=== PATIENT | female | born 1955 | race Caucasian/White ===

== ENCOUNTER 2017-09-15 13:14 | Emergency (ER) | payer MEDICARE ==
[2017-09-15 14:07] LABS: #Basophils 0.1 thou/uL (0.0-0.2); #Eosinphils 0.3 thou/uL (0.0-0.7); #Lymphocytes 2.7 thou/uL (1.20-3.40); #Monocytes 0.8 thou/uL (0.11-0.59); %Basophils 0.7 % (0.0-1.0); %Eosinophils 2.2 % (0.0-10.0); %Monocytes 6.4 % (0.0-10.0); %Neutrophils 67.7 % (42.0-75.0); Hemoglobin 13.5 g/dL (12.0-16.0); Mean Corpuscular HGB CONC 34.4 g/dL (32.0-36.0); Mean Corpuscular Volume 90.1 fl (81.0-99.0); Mean Platelet Volume 6.8 fL (7.4-10.4); Platelet Count 251 thou/uL (130-400); RBC Distribution Width 12.1 % (11.5-14.5); Red Blood Cell (RBC) Count 4.35 mill/uL (4.20-5.40); White Blood Cell (WBC) Count 11.8 thou/uL (4.8-10.8)
[2017-09-15 14:15] LABS: PTT 31.2 SEC (22.9-36.1); Prothrombin Time 13.7 SEC (12.0-14.7)
[2017-09-15 14:37] LABS: ALT (SGPT) 16 U/L (8-55); AST (SGOT) 17 U/L (5-34); Albumin 3.9 g/dL (3.4-4.8); Alkaline Phosphatase 113 U/L (40-150); Anion Gap 11 mmol/L (10-20); BUN (Urea Nitrogen) 11 mg/dL (9.8-20.1); Bilirubin, Total 0.3 mg/dL (0.2-1.2); Calc. Creatinine Clearance 0 mL/min (70-130); Calcium 8.9 mg/dL (7.8-10.44); Carbon Dioxide 29 mmol/L (23-31); Chloride 104 mmol/L (98-107); Estimated GFR-MDRD 61; Globulin 2.9 g/dL (2.4-3.5); Glucose 85 mg/dL (80-115); Potassium 3.6 mmol/L (3.5-5.1); Protein, Total 6.8 g/dL (6.0-8.3); Sodium 140 mmol/L (136-145)
--- NOTE | 2017-09-15 15:22 | RAD ---
RIGHT HAND TWO VIEWS: History: Bruising. Comparison: None. FINDINGS: No acute fracture or malalignment. No significant periostitis. Soft tissues are unremarkable. IMPRESSION: No acute abnormality. POS: [facility]
== END 2017-09-15 15:43 | disposition home or self-care (01) ==
LOC: ERS 13:14
DX: R23.3 Spontaneous ecchymoses (principal); I11.0 Hypertensive heart disease with heart failure; I50.9 Heart failure, unspecified; I25.2 Old myocardial infarction; F32.9 Major depressive disorder, single episode, unspecified; Z87.891 Personal history of nicotine dependence; Z86.73 Personal history of transient ischemic attack (TIA), and cerebral infarction without residual deficits
CPT/HCPCS: 36415; 80053; 85025; 85610; 85730

== ENCOUNTER 2018-04-16 15:05 | Emergency (ER) | payer MEDICARE ==
[2018-04-16 17:00] LABS: #Basophils 0.1 thou/uL (0.0-0.2); #Eosinphils 0.2 thou/uL (0.0-0.7); #Lymphocytes 2.7 thou/uL (1.20-3.40); #Monocytes 0.6 thou/uL (0.11-0.59); #Neutrophils 5.5 thou/uL (1.40-6.50); %Eosinophils 2.5 % (0.0-10.0); %Lymphocytes 29.7 % (21.0-51.0); %Monocytes 6.8 % (0.0-10.0); Hemoglobin 13.9 g/dL (12.0-16.0); Mean Corpuscular Hemoglobin 30.5 pg (27.0-31.0); Mean Corpuscular Volume 92.4 fL (78.0-98.0); Mean Platelet Volume 7.6 fL (7.4-10.4); Platelet Count 272 thou/uL (130-400); RBC Distribution Width 12.7 % (11.5-14.5); Red Blood Cell (RBC) Count 4.58 mill/uL (4.20-5.40); White Blood Cell (WBC) Count 9.1 thou/uL (4.8-10.8)
[2018-04-16 17:21] LABS: ALT (SGPT) 15 U/L (8-55); AST (SGOT) 18 U/L (5-34); Albumin 3.9 g/dL (3.4-4.8); Alkaline Phosphatase 125 U/L (40-150); Anion Gap 11 mmol/L (10-20); BUN (Urea Nitrogen) 11 mg/dL (9.8-20.1); Bilirubin, Total 0.5 mg/dL (0.2-1.2); Calc. Creatinine Clearance 0 mL/min (70-130); Calcium 9.4 mg/dL (7.8-10.44); Carbon Dioxide 27 mmol/L (23-31); Chloride 105 mmol/L (98-107); Estimated GFR-MDRD 53; Globulin 3.6 g/dL (2.4-3.5); Glucose 87 mg/dL (80-115); Protein, Total 7.5 g/dL (6.0-8.3); Sodium 139 mmol/L (136-145)
[2018-04-16] MEDS ORDERED: Dexamethasone 10 MG/ML VIAL ONE (17:31)
[2018-04-16] MEDS ORDERED: Fentanyl 100 MCG/2 ML VIAL ONE (17:31)
[2018-04-16 19:12] LABS: Bilirubin Negative (Negative); Blood, Urine Negative (Negative); Clarity CLEAR (Clear); Glucose, Urine (Dipstick) Negative (Negative); Leukocyte Trace (Negative); Protein, Urine (Dipstick) Negative (Neg-Trace); Specific Gravity, Urine 1.011 (1.002-1.036)
[2018-04-16 19:15] LABS: Bacteria/HPF None Seen HPF (None Seen); Hyaline Casts/LPF 0-3 HYALINE CAST LPF (0-3 Hyaline); Pathc Cast-AUWi Flag 0.72 (0-2.49); RBC/HPF 0-3 HPF (0-3); Squamous Epithelial 0-3 HPF (0-3); WBC/HPF 0-3 HPF (0-3)
--- NOTE | 2018-04-16 19:20 | CT ---
CT OF LUMBAR SPINE PERFORMED WITHOUT CONTRAST ENHANCEMENT: 04/16/18 HISTORY: Low back pain starting four weeks ago with pain radiating to the lower extremities. The vertebral bodies are normal in height. There is a vertebral body hemangioma of T12. There is rojas ed disc narrowing at L5-S1. The bones are diffusely demineralized. There are degenerative facet burk es present. No significant periaortic adenopathy. The visualized portions of the kidneys appear unremarkable. Sli ghtly lobulated contour to both kidneys. T12-L1: Unremarkable. L1-2: Unremarkable. L2-3: Mild degree of canal stenosis with degenerative facet and ligamentous hypertrophic change. L3-4: There is a mild to moderate degree of canal stenosis at this level with disc bulge and facet hy pertrophic changes. L4-5: There is a mild to moderate degree of canal narrowing at this level, again with disc bulging as well as degenerative facet and ligamentous hypertrophic changes. L5-S1: No significant canal stenosis. There is some mild left sided foraminal narrowing. IMPRESSION: Areas of mild to moderate canal stenosis. No signs of any acute injury. POS: [facility]
[2018-04-16 19:26] LABS: Nitrite Positive (Negative)
== END 2018-04-16 20:24 | disposition home or self-care (01) ==
LOC: ERS 15:05
DX: M54.5 Low back pain (principal); I25.2 Old myocardial infarction; I11.0 Hypertensive heart disease with heart failure; I50.9 Heart failure, unspecified; Z86.73 Personal history of transient ischemic attack (TIA), and cerebral infarction without residual deficits; F32.9 Major depressive disorder, single episode, unspecified; Z87.891 Personal history of nicotine dependence
CPT/HCPCS: 36415; 72131; 80053; 81003; 81015; 85025; 96374; 96375; J1100; J3010

== ENCOUNTER 2018-11-01 10:53 | Emergency (ER) | payer MEDICARE ==
[2018-11-01 12:04] LABS: #Basophils 0.1 thou/uL (0.0-0.2); #Eosinphils 0.1 thou/uL (0.0-0.7); #Lymphocytes 2.6 thou/uL (1.20-3.40); #Monocytes 0.7 thou/uL (0.11-0.59); #Neutrophils 6.3 thou/uL (1.40-6.50); %Basophils 0.9 % (0.0-1.0); %Eosinophils 0.6 % (0.0-10.0); %Lymphocytes 26.5 % (21.0-51.0); %Monocytes 7.1 % (0.0-10.0); %Neutrophils 64.9 % (42.0-75.0); Hemoglobin 12.9 g/dL (12.0-16.0); Mean Corpuscular HGB CONC 33.4 g/dL (32.0-36.0); Mean Corpuscular Hemoglobin 29.6 pg (27.0-31.0); Mean Corpuscular Volume 88.5 fL (78.0-98.0); Mean Platelet Volume 7.3 fL (7.4-10.4); Platelet Count 249 thou/uL (130-400); RBC Distribution Width 12.2 % (11.5-14.5); Red Blood Cell (RBC) Count 4.38 mill/uL (4.20-5.40); White Blood Cell (WBC) Count 9.7 thou/uL (4.8-10.8)
[2018-11-01 12:28] LABS: Acetaminophen Less than 6.0 mcg/mL (10.0-30.0); Alcohol Less than 10 mg/dL (Less than 10); Salicylate Less than 8.0 mg/dL (15.0-30.0)
[2018-11-01 12:34] LABS: ALT (SGPT) 16 U/L (8-55); AST (SGOT) 18 U/L (5-34); Albumin 4.1 g/dL (3.4-4.8); Alkaline Phosphatase 123 U/L (40-150); Anion Gap 13 mmol/L (10-20); BUN (Urea Nitrogen) 19 mg/dL (9.8-20.1); Bilirubin, Total 0.5 mg/dL (0.2-1.2); CK (CPK) 77 U/L (29-168); Calc. Creatinine Clearance 0 mL/min (70-130); Calcium 9.4 mg/dL (7.8-10.44); Carbon Dioxide 27 mmol/L (23-31); Chloride 104 mmol/L (98-107); Estimated GFR-MDRD 62; Globulin 2.7 g/dL (2.4-3.5); Glucose 91 mg/dL (80-115); Protein, Total 6.8 g/dL (6.0-8.3); Sodium 140 mmol/L (136-145)
--- NOTE | 2018-11-01 13:08 | CT ---
CT HEAD WITHOUT CONTRAST: Multiple axial tomograms obtained through the head without IV enhancement. INDICATION: Unsteady gait. COMPARISON: 06/11/2016. FINDINGS: [place] artifact from an apparent aneurysm clip in the base of the skull is again noted. Ventricles have normal size and position. There is no evidence of intracranial mass or hemorrhage. No evidence of acute infarct. IMPRESSION: No acute abnormality or interval change noted. POS: [facility]
[2018-11-01] MEDS ORDERED: Meclizine HCl 25 MG TAB ONE (13:34)
== END 2018-11-01 13:36 | disposition home or self-care (01) ==
LOC: ERS 10:53
DX: R42 Dizziness and giddiness (principal); G89.29 Other chronic pain; M54.2 Cervicalgia; M54.9 Dorsalgia, unspecified; I25.2 Old myocardial infarction; I11.0 Hypertensive heart disease with heart failure; I50.9 Heart failure, unspecified; Z86.73 Personal history of transient ischemic attack (TIA), and cerebral infarction without residual deficits; F32.9 Major depressive disorder, single episode, unspecified; Z87.891 Personal history of nicotine dependence; Z79.899 Other long term (current) drug therapy
CPT/HCPCS: 36415; 70450; 80053; 80307; 82550; 84484; 85025; 93005; J8499

== ENCOUNTER 2018-12-06 09:28 | Outpatient (CLI) | payer MEDICARE, OTHER ==
[2018-12-06] MEDS ORDERED: ISOVUE-370 76%-LOCM 1 ML ONE (11:04)
--- NOTE | 2018-12-06 11:44 | CT ---
CT ANGIOGRAM OF THE HEAD: DATE: 12/06/2018. COMPARISON: Noncontrast head CT 11/01/2018. HISTORY: Aneurysm repair in 2011, migraine headaches and vertigo. TECHNIQUE: Axial CT imaging is obtained at 2 mm intervals from vertex through skull base without contrast. Subs equently, axial CT imaging at 2 mm intervals obtained from the vertex through the skull base with IV contrast using CT angiogram protocol. Coronal and sagittal 3D reformatted imaging obtained. FINDINGS: Noncontrast-enhanced head CT demonstrates no intracranial hemorrhage, midline shift, or mass effect. 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 There are subtle areas of decreased attenuation involving the g[place] ventricular and deep white matter suggesting a degree of small-vessel disease. The imaged paranasal sinuses/mastoid air cells are well aerated. There is no displaced calvarial fracture. Postcontrast imaging demonstrates a relatively hypoplastic vertebral artery on the left. Secondary t o severe atherosclerotic calcification, there are 3 areas of significant stenosis involving the dista l left vertebral artery, with focal areas of severe stenosis just proximal to the origin of the basil ar artery just proximal to and distal to a focal area of prominent atherosclerotic calcification. Th e basilar artery is patent with no stenosis involving the imaged portion of the right vertebral arter y. Streak artifact from embolization material limits detailed assessment at the tip of the basilar a rtery. No discrete residual aneurysm is noted in this region. There is a patent posterior communica ting artery on the right and probably on the left. The posterior cerebral arteries appear patent. There is a short segment [id number] dissection of the distal cervical internal carotid artery on the left, best seen on coronal image 48 and axial image 6. The extracranial ICA is patent bilater ally. The A1 segment and M1 segment is patent bilaterally. The ICA bifurcation and MCA bifurcation appear unremarkable as do distal CATA and MCA branches. No sacular aneurysm of the anterior or posterior cir culation seen. IMPRESSION: 1. Status post aneurysm coiling with no discrete saccular aneurysm seen on this exam. 2. 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 3. Multifocal severe stenosis of distal left vertebral artery. CODE T-Call regarding findings made to Dr. Mcclure 2:45pm 12/06/2018 POS: OFF
== END 2018-12-06 09:29 | disposition home or self-care (01) ==
LOC: BICCT 09:28
PROVIDERS: ATTEND Psychiatry & Neurology Neurology
DX: G43.019 Migraine without aura, intractable, without status migrainosus (principal); I65.02 Occlusion and stenosis of left vertebral artery; I77.71 Dissection of carotid artery; Z98.890 Other specified postprocedural states
CPT/HCPCS: 70496; 82565; Q9966

== ENCOUNTER 2020-09-13 19:48 | Inpatient (IN) | payer MEDICARE, OTHER ==
[~2020-09-13 19:48] MED LIST: Iopamidol-370 76% 500 ML 1 ML ONE
[2020-09-13] MEDS ORDERED: Ketamine 50 MG/ML (10ML VIAL) ONE (19:54)
[2020-09-13] MEDS ORDERED: Rocuronium Bromide 10 MG/ML (10ML VIAL) ONE (19:54)
[2020-09-13 20:39] LABS: INR-International Normal Ratio 1.1; PTT 32.8 sec (22.9-36.1)
[2020-09-13 20:41] LABS: Analyzer IN Cardio ER; Base Excess (BEa) -3.1 mEq/L (-2.0 to +3.0); CO2 Tension 34.7 mmHg (35.0-45.0); Calcium, Ionized (arterial) 1.21 mmol/L (1.12-1.30); Carboxyhemoglobin (COHb) 0.6 gm% (0.0-3.0); Hemoglobin (Hb) 12.4 g/dL (12.0-16.0); O2 Tension (PaO2), arterial 154.7 mmHg (> 80.0); Potassium - ABG Lab 3.38 mmol/L (3.70-5.30)
[2020-09-13 20:46] LABS: Hemoglobin 12.5 g/dL (12.0-16.0); Mean Corpuscular HGB CONC 34.1 g/dL (32.0-36.0); Mean Corpuscular Hemoglobin 33.7 pg (27.0-31.0); Mean Corpuscular Volume 98.9 fL (78.0-98.0); RBC Distribution Width 11.3 % (11.5-14.5)
[2020-09-13 20:52] LABS: Acetaminophen Less than 6.0 mcg/mL (10.0-30.0); Alcohol Less than 10 mg/dL (Less than 10); CK (CPK) 132 U/L (29-168); Salicylate Less than 8.0 mg/dL (15.0-30.0)
[2020-09-13 20:52] LABS: ALT (SGPT) 17 U/L (8-55); AST (SGOT) 17 U/L (5-34); Albumin 3.1 g/dL (3.4-4.8); Alkaline Phosphatase 85 U/L (40-110); Anion Gap 13 mmol/L (10-20); BUN (Urea Nitrogen) 16 mg/dL (9.8-20.1); Bilirubin, Total 0.5 mg/dL (0.2-1.2); Calc. Creatinine Clearance 0 mL/min (70-130); Calcium 8.3 mg/dL (7.8-10.44); Carbon Dioxide 20 mmol/L (23-31); Chloride 114 mmol/L (98-107); Globulin 2.4 g/dL (2.4-3.5); Glucose 138 mg/dL (80-115); Potassium 3.5 mmol/L (3.5-5.1); Protein, Total 5.5 g/dL (5.8-8.1); Sodium 143 mmol/L (136-145)
[2020-09-13 20:58] LABS: Band 8 % (5-11); Eosinophils 2 % (0-10); Lymphocytes 11 % (21-51); MDiff Complete? YES; Mean Platelet Volume 6.9 fL (7.4-10.4); Monocytes 8 % (0-10); Neutrophil 71 % (42-75); Platelet Count 238 thou/uL (130-400); White Blood Cell (WBC) Count 21.1 thou/uL (4.8-10.8)
[2020-09-13 21:40] LABS: Bilirubin Negative (Negative); Blood, Urine Negative (Negative); Clarity Clear (Clear); Glucose, Urine (Dipstick) Normal (Negative); Ketone, Urine Negative (Negative); Leukocyte Negative Leu/uL (Negative); Nitrite Negative (Negative); Protein, Urine (Dipstick) Negative (Neg-Trace); Urobilinogen Normal mg/dL (Less than 2); pH, Urine 6.5 (5.0-9.0)
[2020-09-13 21:51] LABS: ALV-art Gradient 158.425 mmHg (0-20); Puncture Site LRA
[2020-09-13 21:52] LABS: Amphetamine Not Detected (NotDetected); Barbiturates Screen Not Detected (NotDetected); Benzodiazepine Screen Not Detected (NotDetected); Cocaine Metabolite Screen Not Detected (NotDetected); Medtox Control Line Valid? VALID (VALID); Medtox Reader # READER 4; Methadone Not Detected (NotDetected); Methamphetamine Not Detected (NotDetected); Opiate Screen Not Detected (NotDetected); Oxycodone Screen Not Detected (NotDetected); Phencyclidine (PCP) Not Detected (NotDetected); THC/Cannabinoid Screen Not Detected (NotDetected); Tricyclic Screen Not Detected (NotDetected)
[2020-09-13] MEDS ORDERED: Propofol 1,000 MG/100 ML VIAL IV ONE (22:04)
[2020-09-13 22:07] LABS: SARS-CoV-2 NAA Rapid Test Not Detected (NotDetected)
[2020-09-13] MEDS ORDERED: diphenhydrAMINE 50 MG/ML VIAL ONE (22:28)
[2020-09-13] MEDS ORDERED: Ventilator Sedation Protocol 1 EACH FS SCH (22:30)
[2020-09-13] MEDS ORDERED: Lorazepam 2 MG/ML VIAL SLOW IVP PRN (22:45)
[2020-09-13] MEDS ORDERED: Fentanyl BOLUS 250 ML IVPB PRN (22:45)
[2020-09-13] MEDS ORDERED: Morphine 2 MG/ML VIAL SLOW IVP PRN (22:45)
[2020-09-13] MEDS ORDERED: Propofol BOLUS 1,000 MG/100 ML VIAL IV PRN (22:45)
[2020-09-13] MEDS ORDERED: DISCONTINUE PREVIOUS NARCOTIC PAIN MEDICATIONS AND BENZODIAZEPINES FS SCH (22:45)
[2020-09-13] MEDS ORDERED: Fentanyl CADD 100 ML IV SCH (22:45)
[2020-09-14] MEDS: Lactated Ringer's 1,000 ML IV SCH ×3 (00:15→17:10)
[2020-09-14 04:22] LABS: Band 4 % (5-11); Hemoglobin 12.4 g/dL (12.0-16.0); Lymphocytes 16 % (21-51); MDiff Complete? YES; Mean Corpuscular HGB CONC 33.9 g/dL (32.0-36.0); Mean Corpuscular Hemoglobin 33.2 pg (27.0-31.0); Mean Corpuscular Volume 97.8 fL (78.0-98.0); Mean Platelet Volume 6.9 fL (7.4-10.4); Monocytes 4 % (0-10); Neutrophil 76 % (42-75); Platelet Count 217 thou/uL (130-400); RBC Distribution Width 11.2 % (11.5-14.5); Red Blood Cell (RBC) Count 3.73 mill/uL (4.20-5.40); White Blood Cell (WBC) Count 14.4 thou/uL (4.8-10.8)
[2020-09-14 04:29] LABS: ALT (SGPT) 17 U/L (8-55); AST (SGOT) 17 U/L (5-34); Albumin 2.9 g/dL (3.4-4.8); Alkaline Phosphatase 85 U/L (40-110); Anion Gap 13 mmol/L (10-20); BUN (Urea Nitrogen) 14 mg/dL (9.8-20.1); Bilirubin, Total 0.6 mg/dL (0.2-1.2); Calc. Creatinine Clearance 117 mL/min (70-130); Calcium 8.6 mg/dL (7.8-10.44); Carbon Dioxide 20 mmol/L (23-31); Chloride 114 mmol/L (98-107); Globulin 2.7 g/dL (2.4-3.5); Glucose 101 mg/dL (80-115); Potassium 3.4 mmol/L (3.5-5.1); Protein, Total 5.6 g/dL (5.8-8.1); Sodium 144 mmol/L (136-145)
[2020-09-14] MEDS ORDERED: FLU VACC QS2020-21(6MOS UP)/PF 60 MCG/0.5 ML SYRINGE IM ONE (09:00)
[2020-09-14] MEDS: Pantoprazole 40 MG VIAL IVP SCH (09:36)
[2020-09-14] MEDS ORDERED: Potassium Chloride 40 MEQ in Sodium Chloride 0.9% 250 ML 250 ML IVPB SCH (10:00)
[2020-09-14] MEDS ORDERED: Potassium Bicarbonate/Cit Ac 20 MEQ TAB PER TUBE SCH (11:00)
[2020-09-14] MEDS ORDERED: hydrALAZINE 20 MG/ML VIAL SLOW IVP PRN (12:14)
[2020-09-14] MEDS ORDERED: Enoxaparin Sodium 40 MG/0.4 ML SYRINGE SC SCH (15:00)
[2020-09-14] MEDS: Acetaminophen 325 MG TAB PO PRN (20:53)
[2020-09-14] MEDS: Propofol 1,000 MG/100 ML VIAL IV PRN (21:19)
[2020-09-14] MEDS ORDERED: Fentanyl CADD 100 ML ONE (22:37)
[2020-09-15] MEDS: Lactated Ringer's 1,000 ML IV SCH ×3 (00:30→17:02)
[2020-09-15] MEDS: Propofol 1,000 MG/100 ML VIAL IV PRN ×3 (01:35→18:39)
[2020-09-15 04:21] LABS: ALT (SGPT) 14 U/L (8-55); AST (SGOT) 13 U/L (5-34); Albumin 2.9 g/dL (3.4-4.8); Alkaline Phosphatase 80 U/L (40-110); Anion Gap 14 mmol/L (10-20); BUN (Urea Nitrogen) 12 mg/dL (9.8-20.1); Bilirubin, Total 0.5 mg/dL (0.2-1.2); Calc. Creatinine Clearance 131 mL/min (70-130); Calcium 8.4 mg/dL (7.8-10.44); Carbon Dioxide 21 mmol/L (23-31); Chloride 107 mmol/L (98-107); Globulin 2.7 g/dL (2.4-3.5); Glucose 109 mg/dL (80-115); Protein, Total 5.6 g/dL (5.8-8.1); Sodium 139 mmol/L (136-145)
[2020-09-15 04:53] LABS: Potassium 2.7 mmol/L (3.5-5.1)
[2020-09-15 04:58] LABS: Band 6 % (5-11); Hemoglobin 12.2 g/dL (12.0-16.0); Lymphocytes 15 % (21-51); MDiff Complete? YES; Mean Corpuscular HGB CONC 34.1 g/dL (32.0-36.0); Mean Corpuscular Hemoglobin 33.3 pg (27.0-31.0); Mean Corpuscular Volume 97.6 fL (78.0-98.0); Mean Platelet Volume 7.3 fL (7.4-10.4); Monocytes 1 % (0-10); Neutrophil 78 % (42-75); Platelet Count 244 thou/uL (130-400); RBC Distribution Width 11.1 % (11.5-14.5); Red Blood Cell (RBC) Count 3.67 mill/uL (4.20-5.40); White Blood Cell (WBC) Count 20.6 thou/uL (4.8-10.8)
[2020-09-15] MEDS ORDERED: Electrolyte Replacement Protocol FS PRN (05:30)
[2020-09-15] MEDS: Potassium Bicarbonate/Cit Ac 20 MEQ TAB PER TUBE SCH ×2 (05:35→09:22)
[2020-09-15] MEDS: Aspirin 81 mg Enteric Coated Tablet PO SCH (08:27)
[2020-09-15] MEDS: Clopidogrel Bisulfate 75 MG TAB PO SCH (08:27)
[2020-09-15] MEDS: Enoxaparin Sodium 40 MG/0.4 ML SYRINGE SC SCH (08:27)
[2020-09-15] MEDS: Pantoprazole 40 MG VIAL IVP SCH (08:27)
[2020-09-15] MEDS ORDERED: Enoxaparin Sodium 40 MG/0.4 ML SYRINGE SC SCH (09:00)
[2020-09-15] MEDS: cefTRIAXone\\ROCEPHIN 1 GM in Sodium Chloride 0.9% 100 ML IVPB SCH (11:47)
[2020-09-15] MEDS: Vancomycin 1 GM in Premix Bag 1 BAG IVPB SCH (12:46)
[2020-09-15] MEDS ORDERED: cloNIDine 0.2 MG TAB PO SCH (13:23)
[2020-09-15 14:43] LABS: Anion Gap 18 mmol/L (10-20); BUN (Urea Nitrogen) 13 mg/dL (9.8-20.1); Calc. Creatinine Clearance 124 mL/min (70-130); Calcium 8.7 mg/dL (7.8-10.44); Carbon Dioxide 22 mmol/L (23-31); Chloride 103 mmol/L (98-107); Glucose 108 mg/dL (80-115); Potassium 3.2 mmol/L (3.5-5.1); Sodium 140 mmol/L (136-145)
[2020-09-15] MEDS ORDERED: Potassium Chloride 20 MEQ TAB PO SCH (15:45)
[2020-09-15] MEDS ORDERED: Magnesium Sulfate 4 GM in Sodium Chloride 0.9% 250 ML 250 ML IVPB SCH (16:00)
[2020-09-15] MEDS: Acetaminophen 325 MG TAB PO PRN (16:46)
[2020-09-15] MEDS: clonazePAM 0.5 MG TAB PO SCH (20:00)
[2020-09-15] MEDS: cloNIDine 0.2 MG TAB PO SCH (20:00)
[2020-09-16] MEDS: Vancomycin 1 GM in Premix Bag 1 BAG IVPB SCH ×2 (00:02→12:02)
[2020-09-16] MEDS: Acetaminophen 325 MG TAB PO PRN ×2 (00:03→16:12)
[2020-09-16] MEDS: Lactated Ringer's 1,000 ML IV SCH ×2 (03:00→09:33)
[2020-09-16] MEDS: Propofol 1,000 MG/100 ML VIAL IV PRN (03:59)
[2020-09-16 04:13] LABS: ALT (SGPT) 16 U/L (8-55); AST (SGOT) 15 U/L (5-34); Albumin 2.7 g/dL (3.4-4.8); Alkaline Phosphatase 82 U/L (40-110); Anion Gap 11 mmol/L (10-20); BUN (Urea Nitrogen) 13 mg/dL (9.8-20.1); Bilirubin, Total 0.4 mg/dL (0.2-1.2); Calc. Creatinine Clearance 130 mL/min (70-130); Calcium 7.7 mg/dL (7.8-10.44); Carbon Dioxide 24 mmol/L (23-31); Chloride 106 mmol/L (98-107); Globulin 3.1 g/dL (2.4-3.5); Glucose 104 mg/dL (80-115); Potassium 3.3 mmol/L (3.5-5.1); Protein, Total 5.8 g/dL (5.8-8.1); Sodium 138 mmol/L (136-145)
[2020-09-16 04:45] LABS: Band 6 % (5-11); Eosinophils 3 % (0-10); Hemoglobin 12.1 g/dL (12.0-16.0); Lymphocytes 15 % (21-51); MDiff Complete? YES; Mean Corpuscular HGB CONC 34.3 g/dL (32.0-36.0); Mean Corpuscular Hemoglobin 33.6 pg (27.0-31.0); Mean Corpuscular Volume 97.8 fL (78.0-98.0); Mean Platelet Volume 7.4 fL (7.4-10.4); Monocytes 9 % (0-10); Neutrophil 67 % (42-75); Platelet Count 246 thou/uL (130-400); RBC Distribution Width 11.3 % (11.5-14.5); White Blood Cell (WBC) Count 20.8 thou/uL (4.8-10.8)
[2020-09-16] MEDS ORDERED: Potassium Chloride 20 MEQ TAB PO SCH (06:15)
[2020-09-16] MEDS: cloNIDine 0.2 MG TAB PO SCH ×2 (08:23→20:16)
[2020-09-16] MEDS: Aspirin 81 mg Enteric Coated Tablet PO SCH (08:23)
[2020-09-16] MEDS: Clopidogrel Bisulfate 75 MG TAB PO SCH (08:23)
[2020-09-16] MEDS: clonazePAM 0.5 MG TAB PO SCH ×2 (08:23→20:16)
[2020-09-16] MEDS: Enoxaparin Sodium 40 MG/0.4 ML SYRINGE SC SCH (08:24)
[2020-09-16] MEDS: Pantoprazole 40 MG VIAL IVP SCH (08:24)
[2020-09-16] MEDS: cefTRIAXone\\ROCEPHIN 1 GM in Sodium Chloride 0.9% 100 ML IVPB SCH (11:20)
[2020-09-16] MEDS: Haloperidol Lactate 5 MG/ML VIAL SLOW IVP PRN ×2 (16:09→22:59)
[2020-09-17 04:07] LABS: Band 3 % (5-11); Eosinophils 1 % (0-10); Hemoglobin 11.7 g/dL (12.0-16.0); Lymphocytes 17 % (21-51); MDiff Complete? YES; Mean Corpuscular HGB CONC 31.3 g/dL (32.0-36.0); Mean Corpuscular Hemoglobin 30.7 pg (27.0-31.0); Mean Corpuscular Volume 98.3 fL (78.0-98.0); Mean Platelet Volume 7.5 fL (7.4-10.4); Monocytes 10 % (0-10); Neutrophil 69 % (42-75); Platelet Count 264 thou/uL (130-400); RBC Distribution Width 11.2 % (11.5-14.5); Red Blood Cell (RBC) Count 3.81 mill/uL (4.20-5.40); White Blood Cell (WBC) Count 13.2 thou/uL (4.8-10.8)
[2020-09-17 04:16] LABS: ALT (SGPT) 19 U/L (8-55); AST (SGOT) 21 U/L (5-34); Albumin 3.1 g/dL (3.4-4.8); Alkaline Phosphatase 98 U/L (40-110); Anion Gap 14 mmol/L (10-20); BUN (Urea Nitrogen) 10 mg/dL (9.8-20.1); Bilirubin, Total 0.5 mg/dL (0.2-1.2); Calc. Creatinine Clearance 128 mL/min (70-130); Calcium 8.4 mg/dL (7.8-10.44); Carbon Dioxide 21 mmol/L (23-31); Chloride 109 mmol/L (98-107); Globulin 3.3 g/dL (2.4-3.5); Glucose 103 mg/dL (80-115); Potassium 3.4 mmol/L (3.5-5.1); Protein, Total 6.4 g/dL (5.8-8.1); Sodium 141 mmol/L (136-145)
[2020-09-17] MEDS: Haloperidol Lactate 5 MG/ML VIAL SLOW IVP PRN (04:49)
[2020-09-17] MEDS ORDERED: Potassium Chloride 40 MEQ in Sodium Chloride 0.9% 250 ML 250 ML IVPB SCH (05:00)
[2020-09-17] MEDS: Aspirin 81 mg Enteric Coated Tablet PO SCH (08:06)
[2020-09-17] MEDS: Enoxaparin Sodium 40 MG/0.4 ML SYRINGE SC SCH (08:06)
[2020-09-17] MEDS: Clopidogrel Bisulfate 75 MG TAB PO SCH (08:06)
[2020-09-17] MEDS: cloNIDine 0.2 MG TAB PO SCH (08:06)
[2020-09-17] MEDS: clonazePAM 0.5 MG TAB PO SCH ×2 (08:06→21:27)
[2020-09-17] MEDS: cefTRIAXone\\ROCEPHIN 1 GM in Sodium Chloride 0.9% 100 ML IVPB SCH (11:20)
[2020-09-17] MEDS ORDERED: Lisinopril/Hydrochlorothiazide 20 mg/12.5 mg Tablet PO SCH (12:15)
[2020-09-17] MEDS ORDERED: Labetalol HCl 100 MG/20 ML VIAL SLOW IVP PRN (12:16)
[2020-09-17] MEDS: cloNIDine 0.1 MG TAB PO SCH ×2 (14:39→21:28)
[2020-09-17] MEDS: Lisinopril/Hydrochlorothiazide 20 mg/12.5 mg Tablet PO SCH (21:27)
[2020-09-17] MEDS: tiZANidine HCl 4 MG TAB PO SCH (21:29)
[2020-09-18 04:53] LABS: Hemoglobin 13.1 g/dL (12.0-16.0); Mean Corpuscular HGB CONC 33.9 g/dL (32.0-36.0); Mean Corpuscular Volume 97.3 fL (78.0-98.0); Mean Platelet Volume 7.1 fL (7.4-10.4); Platelet Count 328 thou/uL (130-400); Red Blood Cell (RBC) Count 3.98 mill/uL (4.20-5.40); White Blood Cell (WBC) Count 14.2 thou/uL (4.8-10.8)
[2020-09-18 05:05] LABS: ALT (SGPT) 26 U/L (8-55); AST (SGOT) 26 U/L (5-34); Albumin 3.4 g/dL (3.4-4.8); Alkaline Phosphatase 110 U/L (40-110); Anion Gap 16 mmol/L (10-20); BUN (Urea Nitrogen) 9 mg/dL (9.8-20.1); Bilirubin, Total 0.5 mg/dL (0.2-1.2); Calc. Creatinine Clearance 131 mL/min (70-130); Calcium 9.4 mg/dL (7.8-10.44); Carbon Dioxide 21 mmol/L (23-31); Chloride 106 mmol/L (98-107); Globulin 3.8 g/dL (2.4-3.5); Glucose 109 mg/dL (80-115); Magnesium 1.8 mg/dL (1.6-2.6); Potassium 3.5 mmol/L (3.5-5.1); Protein, Total 7.2 g/dL (5.8-8.1); Sodium 139 mmol/L (136-145)
[2020-09-18 06:15] LABS: Band 4 % (5-11); Eosinophils 2 % (0-10); Lymphocytes 14 % (21-51); MDiff Complete? YES; Monocytes 10 % (0-10); Neutrophil 70 % (42-75)
[2020-09-18] MEDS ORDERED: Magnesium 2 GM/50 ML 2 GM in Premix Bag 1 BAG IVPB SCH (06:15)
[2020-09-18] MEDS: Potassium Chloride 20 MEQ in Premix Bag 1 BAG IVPB SCH ×2 (06:33→09:17)
[2020-09-18] MEDS: Lisinopril/Hydrochlorothiazide 20 mg/12.5 mg Tablet PO SCH ×2 (09:19→21:58)
[2020-09-18] MEDS: cloNIDine 0.1 MG TAB PO SCH ×3 (09:19→21:59)
[2020-09-18] MEDS: Clopidogrel Bisulfate 75 MG TAB PO SCH (09:19)
[2020-09-18] MEDS: Aspirin 81 mg Enteric Coated Tablet PO SCH (09:20)
[2020-09-18] MEDS: Enoxaparin Sodium 40 MG/0.4 ML SYRINGE SC SCH (09:20)
[2020-09-18] MEDS: clonazePAM 0.5 MG TAB PO SCH ×2 (09:20→22:00)
[2020-09-18] MEDS: Citalopram 20 MG TAB PO SCH (09:20)
[2020-09-18] MEDS: cefTRIAXone\\ROCEPHIN 1 GM in Sodium Chloride 0.9% 100 ML IVPB SCH (11:50)
[2020-09-18] MEDS: tiZANidine HCl 4 MG TAB PO SCH (21:58)
[2020-09-19 05:07] LABS: Band 1 % (5-11); Eosinophils 5 % (0-10); Lymphocytes 20 % (21-51); MDiff Complete? YES; Mean Corpuscular HGB CONC 34.5 g/dL (32.0-36.0); Mean Corpuscular Hemoglobin 33.2 pg (27.0-31.0); Mean Corpuscular Volume 96.2 fL (78.0-98.0); Mean Platelet Volume 7.2 fL (7.4-10.4); Monocytes 6 % (0-10); Neutrophil 68 % (42-75); Platelet Count 362 thou/uL (130-400); RBC Distribution Width 10.9 % (11.5-14.5); Red Blood Cell (RBC) Count 4.22 mill/uL (4.20-5.40); White Blood Cell (WBC) Count 14.8 thou/uL (4.8-10.8)
[2020-09-19 05:19] LABS: ALT (SGPT) 33 U/L (8-55); AST (SGOT) 25 U/L (5-34); Albumin 3.7 g/dL (3.4-4.8); Alkaline Phosphatase 113 U/L (40-110); Anion Gap 16 mmol/L (10-20); BUN (Urea Nitrogen) 11 mg/dL (9.8-20.1); Bilirubin, Total 0.6 mg/dL (0.2-1.2); Calc. Creatinine Clearance 123 mL/min (70-130); Calcium 9.3 mg/dL (7.8-10.44); Carbon Dioxide 22 mmol/L (23-31); Chloride 103 mmol/L (98-107); Glucose 107 mg/dL (80-115); Potassium 3.1 mmol/L (3.5-5.1); Protein, Total 7.7 g/dL (5.8-8.1); Sodium 138 mmol/L (136-145)
[2020-09-19] MEDS: Potassium Chloride 20 MEQ in Premix Bag 1 BAG IVPB SCH ×2 (06:27→09:51)
[2020-09-19] MEDS ORDERED: hydrALAZINE 20 MG/ML VIAL SLOW IVP PRN (07:22)
[2020-09-19] MEDS: Aspirin 81 mg Enteric Coated Tablet PO SCH (09:41)
[2020-09-19] MEDS: Enoxaparin Sodium 40 MG/0.4 ML SYRINGE SC SCH (09:41)
[2020-09-19] MEDS: Lisinopril/Hydrochlorothiazide 20 mg/12.5 mg Tablet PO SCH ×2 (09:41→21:31)
[2020-09-19] MEDS: cloNIDine 0.1 MG TAB PO SCH ×3 (09:41→21:33)
[2020-09-19] MEDS: clonazePAM 0.5 MG TAB PO SCH ×2 (09:42→21:33)
[2020-09-19] MEDS: Citalopram 20 MG TAB PO SCH (09:42)
[2020-09-19] MEDS: Clopidogrel Bisulfate 75 MG TAB PO SCH (09:42)
[2020-09-19 11:00] VITALS: BMI 37.4
[2020-09-19] MEDS: tiZANidine HCl 4 MG TAB PO SCH (21:34)
[2020-09-20 06:30] LABS: Hemoglobin 14.5 g/dL (12.0-16.0); Mean Corpuscular HGB CONC 33.6 g/dL (32.0-36.0); Mean Corpuscular Hemoglobin 32.4 pg (27.0-31.0); Mean Corpuscular Volume 96.4 fL (78.0-98.0); Mean Platelet Volume 7.5 fL (7.4-10.4); Platelet Count 386 thou/uL (130-400); RBC Distribution Width 11.4 % (11.5-14.5); Red Blood Cell (RBC) Count 4.47 mill/uL (4.20-5.40); White Blood Cell (WBC) Count 14.9 thou/uL (4.8-10.8)
[2020-09-20 06:32] LABS: ALT (SGPT) 36 U/L (8-55); AST (SGOT) 29 U/L (5-34); Albumin 3.6 g/dL (3.4-4.8); Alkaline Phosphatase 108 U/L (40-110); Anion Gap 18 mmol/L (10-20); BUN (Urea Nitrogen) 17 mg/dL (9.8-20.1); Bilirubin, Total 0.6 mg/dL (0.2-1.2); Calc. Creatinine Clearance 97 mL/min (70-130); Calcium 9.5 mg/dL (7.8-10.44); Carbon Dioxide 20 mmol/L (23-31); Chloride 103 mmol/L (98-107); Globulin 4.2 g/dL (2.4-3.5); Glucose 115 mg/dL (80-115); Potassium 3.8 mmol/L (3.5-5.1); Protein, Total 7.8 g/dL (5.8-8.1); Sodium 137 mmol/L (136-145)
[2020-09-20 06:48] LABS: Band 11 % (5-11); Lymphocytes 24 % (21-51); MDiff Complete? YES; Monocytes 4 % (0-10); Neutrophil 61 % (42-75)
[2020-09-20] MEDS: cloNIDine 0.1 MG TAB PO SCH ×3 (09:28→20:50)
[2020-09-20] MEDS: Citalopram 20 MG TAB PO SCH (09:30)
[2020-09-20] MEDS: Clopidogrel Bisulfate 75 MG TAB PO SCH (09:30)
[2020-09-20] MEDS: Lisinopril/Hydrochlorothiazide 20 mg/12.5 mg Tablet PO SCH ×2 (09:31→20:51)
[2020-09-20] MEDS: Aspirin 81 mg Enteric Coated Tablet PO SCH (09:31)
[2020-09-20] MEDS: clonazePAM 0.5 MG TAB PO SCH ×3 (09:31→20:50)
[2020-09-20] MEDS: Enoxaparin Sodium 40 MG/0.4 ML SYRINGE SC SCH (09:32)
[2020-09-20] MEDS: Haloperidol Lactate 5 MG/ML VIAL SLOW IVP PRN (09:52)
[2020-09-20] MEDS ORDERED: Haloperidol Lactate 5 MG/ML VIAL SLOW IVP PRN (10:05)
[2020-09-20] MEDS ORDERED: Haloperidol Lactate 5 MG/ML VIAL IM PRN (10:20)
[2020-09-20] MEDS: tiZANidine HCl 4 MG TAB PO SCH (20:51)
[2020-09-21] MEDS: Acetaminophen 325 MG TAB PO PRN (06:12)
[2020-09-21 07:34] LABS: #Basophils 0.1 thou/uL (0.0-0.2); #Eosinphils 0.1 thou/uL (0.0-0.7); #Lymphocytes 2.2 thou/uL (1.20-3.40); #Neutrophils 12.1 thou/uL (1.40-6.50); %Basophils 0.3 % (0.0-1.0); %Eosinophils 0.7 % (0.0-10.0); %Lymphocytes 13.3 % (21.0-51.0); %Monocytes 11.9 % (0.0-10.0); %Neutrophils 73.8 % (42.0-75.0); Hemoglobin 14.4 g/dL (12.0-16.0); Mean Corpuscular HGB CONC 34.1 g/dL (32.0-36.0); Mean Corpuscular Hemoglobin 32.9 pg (27.0-31.0); Mean Corpuscular Volume 96.6 fL (78.0-98.0); Mean Platelet Volume 7.4 fL (7.4-10.4); Platelet Count 403 thou/uL (130-400); RBC Distribution Width 11.3 % (11.5-14.5); Red Blood Cell (RBC) Count 4.38 mill/uL (4.20-5.40); White Blood Cell (WBC) Count 16.5 thou/uL (4.8-10.8)
[2020-09-21 07:40] LABS: ALT (SGPT) 32 U/L (8-55); AST (SGOT) 20 U/L (5-34); Albumin 3.7 g/dL (3.4-4.8); Alkaline Phosphatase 100 U/L (40-110); Anion Gap 14 mmol/L (10-20); BUN (Urea Nitrogen) 24 mg/dL (9.8-20.1); Bilirubin, Total 0.7 mg/dL (0.2-1.2); Calc. Creatinine Clearance 58 mL/min (70-130); Calcium 9.3 mg/dL (7.8-10.44); Carbon Dioxide 26 mmol/L (23-31); Chloride 103 mmol/L (98-107); Globulin 3.7 g/dL (2.4-3.5); Glucose 128 mg/dL (80-115); Potassium 2.9 mmol/L (3.5-5.1); Protein, Total 7.4 g/dL (5.8-8.1); Sodium 140 mmol/L (136-145)
[2020-09-21] MEDS: Aspirin 81 mg Enteric Coated Tablet PO SCH (09:17)
[2020-09-21] MEDS: clonazePAM 0.5 MG TAB PO SCH ×2 (09:17→21:06)
[2020-09-21] MEDS: cloNIDine 0.1 MG TAB PO SCH ×3 (09:17→21:06)
[2020-09-21] MEDS: Clopidogrel Bisulfate 75 MG TAB PO SCH (09:17)
[2020-09-21] MEDS: Citalopram 20 MG TAB PO SCH (09:17)
[2020-09-21] MEDS: Lisinopril/Hydrochlorothiazide 20 mg/12.5 mg Tablet PO SCH (09:17)
[2020-09-21] MEDS: Potassium Chloride 20 MEQ TAB PO SCH ×3 (09:18→15:00)
[2020-09-21] MEDS: Enoxaparin Sodium 40 MG/0.4 ML SYRINGE SC SCH (09:18)
[2020-09-21] MEDS: NS 0.9% w/ 20 MEQ KCL 1,000 ML/1,000 ML BAG IV SCH (12:54)
[2020-09-21 14:17] LABS: Potassium 3.1 mmol/L (3.5-5.1)
[2020-09-21] MEDS ORDERED: Potassium Chloride 20 MEQ TAB PO SCH (14:45)
[2020-09-21 20:41] LABS: Potassium 3.9 mmol/L (3.5-5.1)
[2020-09-22] MEDS: NS 0.9% w/ 20 MEQ KCL 1,000 ML/1,000 ML BAG IV SCH ×3 (02:28→20:20)
[2020-09-22 06:07] LABS: #Basophils 0.1 thou/uL (0.0-0.2); #Eosinphils 0.1 thou/uL (0.0-0.7); #Lymphocytes 2.6 thou/uL (1.20-3.40); #Monocytes 1.2 thou/uL (0.11-0.59); #Neutrophils 7.7 thou/uL (1.40-6.50); %Basophils 0.7 % (0.0-1.0); %Eosinophils 1.3 % (0.0-10.0); %Lymphocytes 22.5 % (21.0-51.0); %Monocytes 10.4 % (0.0-10.0); %Neutrophils 65.2 % (42.0-75.0); Hemoglobin 13.2 g/dL (12.0-16.0); Mean Corpuscular Hemoglobin 32.3 pg (27.0-31.0); Mean Corpuscular Volume 97.8 fL (78.0-98.0); Mean Platelet Volume 7.8 fL (7.4-10.4); Platelet Count 314 thou/uL (130-400); RBC Distribution Width 11.4 % (11.5-14.5); Red Blood Cell (RBC) Count 4.08 mill/uL (4.20-5.40); White Blood Cell (WBC) Count 11.7 thou/uL (4.8-10.8)
[2020-09-22 06:22] LABS: Hemoglobin 13.4 g/dL (12.0-16.0); Lymphocytes 24 % (21-51); MDiff Complete? YES; Mean Corpuscular HGB CONC 34.2 g/dL (32.0-36.0); Mean Corpuscular Hemoglobin 33.7 pg (27.0-31.0); Mean Corpuscular Volume 98.6 fL (78.0-98.0); Mean Platelet Volume 7.7 fL (7.4-10.4); Monocytes 14 % (0-10); Neutrophil 62 % (42-75); Platelet Count 310 thou/uL (130-400); Platelet Morphology Comment Appears Adequate; RBC Distribution Width 11.3 % (11.5-14.5); Red Blood Cell (RBC) Count 3.96 mill/uL (4.20-5.40); White Blood Cell (WBC) Count 11.4 thou/uL (4.8-10.8)
[2020-09-22 06:34] LABS: ALT (SGPT) 25 U/L (8-55); AST (SGOT) 17 U/L (5-34); Albumin 3.2 g/dL (3.4-4.8); Alkaline Phosphatase 86 U/L (40-110); Anion Gap 14 mmol/L (10-20); BUN (Urea Nitrogen) 33 mg/dL (9.8-20.1); Bilirubin, Total 0.6 mg/dL (0.2-1.2); Calc. Creatinine Clearance 65 mL/min (70-130); Calcium 8.4 mg/dL (7.8-10.44); Carbon Dioxide 21 mmol/L (23-31); Chloride 111 mmol/L (98-107); Globulin 3.4 g/dL (2.4-3.5); Glucose 96 mg/dL (80-115); Potassium 3.8 mmol/L (3.5-5.1); Protein, Total 6.6 g/dL (5.8-8.1); Sodium 142 mmol/L (136-145)
[2020-09-22] MEDS ORDERED: Magnesium 2 GM/50 ML 2 GM in Premix Bag 1 BAG IVPB SCH (06:45)
[2020-09-22] MEDS: cloNIDine 0.1 MG TAB PO SCH ×3 (08:46→20:13)
[2020-09-22] MEDS: Citalopram 20 MG TAB PO SCH (08:46)
[2020-09-22] MEDS: Clopidogrel Bisulfate 75 MG TAB PO SCH (08:46)
[2020-09-22] MEDS: Enoxaparin Sodium 40 MG/0.4 ML SYRINGE SC SCH (08:46)
[2020-09-22] MEDS: Aspirin 81 mg Enteric Coated Tablet PO SCH (08:46)
[2020-09-22] MEDS: clonazePAM 0.5 MG TAB PO SCH ×2 (08:46→20:13)
[2020-09-22 20:07] VITALS: BP 169/87; TEMP 98.2
== END 2020-09-22 21:27 | disposition short-term general hospital (02) | DRG 917 ==
LOC: ERS 19:48 → CCU 21:18 → 2NO 09-17 18:30 → T4-A 09-19 15:49
PROVIDERS: ADMIT Family Medicine; ATTEND Internal Medicine
PROC: 0BH17EZ Insertion of Endotracheal Airway into Trachea, Via Natural or Artificial Opening (ICD-10-PCS; principal; 2020-09-13)
PROC: 5A1945Z Respiratory Ventilation, 24-96 Consecutive Hours (ICD-10-PCS; 2020-09-13)
DX: T43.212A Poisoning by selective serotonin and norepinephrine reuptake inhibitors, intentional self-harm, initial encounter (principal); J96.01 Acute respiratory failure with hypoxia; G92 Toxic encephalopathy; E87.2 Acidosis; N39.0 Urinary tract infection, site not specified; R44.0 Auditory hallucinations; N17.9 Acute kidney failure, unspecified; Z66 Do not resuscitate; F32.9 Major depressive disorder, single episode, unspecified; G47.00 Insomnia, unspecified; D72.820 Lymphocytosis (symptomatic); D72.829 Elevated white blood cell count, unspecified; R94.31 Abnormal electrocardiogram [ECG] [EKG]; N18.9 Chronic kidney disease, unspecified; I12.9 Hypertensive chronic kidney disease with stage 1 through stage 4 chronic kidney disease, or unspecified chronic kidney disease; J44.9 Chronic obstructive pulmonary disease, unspecified; G43.909 Migraine, unspecified, not intractable, without status migrainosus; R91.1 Solitary pulmonary nodule; B96.20 Unspecified Escherichia coli [E. coli] as the cause of diseases classified elsewhere; E66.9 Obesity, unspecified; R44.1 Visual hallucinations; E87.6 Hypokalemia; R00.0 Tachycardia, unspecified; Y92.239 Unspecified place in hospital as the place of occurrence of the external cause; T50.2X5A Adverse effect of carbonic-anhydrase inhibitors, benzothiadiazides and other diuretics, initial encounter; Y92.89 Other specified places as the place of occurrence of the external cause; Z88.5 Allergy status to narcotic agent; Z87.891 Personal history of nicotine dependence; Z88.8 Allergy status to other drugs, medicaments and biological substances; Z91.041 Radiographic dye allergy status; Z79.02 Long term (current) use of antithrombotics/antiplatelets; Z79.899 Other long term (current) drug therapy; Z68.36 Body mass index [BMI] 36.0-36.9, adult
CPT/HCPCS: 31500; 36415; 36416; 36600; 70450; 71045; 71275; 80053; 80306; 80307; 81003; 82140; 82550; 82805; 83605; 83735; 84145; 84484; 85007; 85025; 85027; 85610; 85730; 87040; 87077; 87086; 87186; 93005; 93010; 94002; 94003; 96361; 96374; 96375; 99292; C9113; J0360; J0696; J1200; J1630; J1650; J2704; J3010; J3370; J3475; J3480; J3490; J7050; Q9967; U0002